=== PATIENT | female | born 1975 | race Caucasian/White ===

== ENCOUNTER 2024-04-30 11:30 | Outpatient (CLI) | payer OTHER, SELFPAY ==
--- NOTE | ~2024-04-30 | US_ITS ---
EXAMINATION: US right upper quadrant DATE: 04/30/2024 11:54 INDICATION: hepatic steatosis TECHNIQUE: Multiple grayscale and Doppler ultrasound images of the right upper quadrant were obtained . COMPARISON: None available. FINDINGS: The visualized portions of the pancreas are normal. The liver is normal with normal echogen icity and echotexture. No surface nodularity. Normal hepatopetal flow in the main portal vein. Echoge katya foci measuring 6 and 7 mm, without posterior shadowing, nonmobile. No gallbladder wall thickening or pericholecystic fluid. The common bile duct measures 4 mm. There was no sonographic Coles sign. IMPRESSION: 6 mm and 7 mm adherent nonshadowing gallbladder wall foci, may represent adherent stones, sludge ball s, or polyps. Otherwise normal right upper quadrant ultrasound findings. Reviewed, dictated and finalized at location K. HOST IMPRESSION: 6 mm and 7 mm adherent nonshadowing gallbladder wall foci, may represent adhere nt stones, sludge balls, or polyps. Otherwise normal right upper quadrant ultrasound findings.
== END 2024-04-30 11:31 | disposition home or self-care (01) ==
LOC: MICIMG 11:31
PROVIDERS: Visit Provider Family Medicine
DX: K76.0 Fatty (change of) liver, not elsewhere classified (principal)
CPT/HCPCS: 76705